=== PATIENT | female | born 2005 | race African-American/Black ===

== ENCOUNTER 2025-03-12 04:30 | Inpatient (IN) | payer OTHER ==
[2025-03-12] MEDS ORDERED: Magnesium 2 GM/50 ML BAG (IN WATER) ONE (04:39)
[2025-03-12 04:56] LABS: Actual Bicarbonate (HCO3v) 17.9 mEq/L (22-28); Base Excess -9.3 mEq/L (-2.0 to +3.0); Calcium, Ionized (venous) 1.14 mmol/L (1.16-1.32); Chloride (VBG) 104 mmol/L (98-106); Hematocrit-VBG 43 % (36.0-47.0); Hemoglobin (Hb) 14.5 g/dL (11.7-15.5); Potassium (VBG) 2.82 mmol/L (3.70-5.30); Sodium 143 mmol/L (133-146)
[2025-03-12 05:14] LABS: Hematocrit 41.5 % (36.0-47.0); Hemoglobin 13.3 g/dL (12.0-16.0); Mean Corpuscular Hemoglobin 30.0 pg (27.0-31.0); Mean Corpuscular Volume 93.7 fL (78.0-98.0); Platelet Count 255 10x3/uL (130-400); Red Blood Cell (RBC) Count 4.43 mill/uL (4.20-5.40); White Blood Cell (WBC) Count 5.18 10x3/uL (4.8-10.8)
[2025-03-12 05:15] LABS: INR-International Normal Ratio 1.0; PTT 28.4 sec (22.9-36.1); Prothrombin Time 13.6 sec (12.0-14.7)
[2025-03-12 05:34] LABS: ALT (SGPT) 117 U/L (Less than 34); AST (SGOT) 176 U/L (11-34); Albumin 4.2 g/dL (3.1-4.5); Alkaline Phosphatase 74 U/L (40-110); Anion Gap 18 mmol/L (10-20); BUN (Urea Nitrogen) 17 mg/dL (7.0-18.7); Bilirubin, Total 0.4 mg/dL (0.3-1.2); CK (CPK) 123 U/L (29-168); Calc. Creatinine Clearance 0 mL/min (70-130); Calcium 8.9 mg/dL (7.8-10.44); Carbon Dioxide 19 mmol/L (22-29); Chloride 107 mmol/L (98-107); Globulin 3.0 g/dL (2.4-3.5); Glucose 104 mg/dL (70-105); Potassium 2.8 mmol/L (3.5-5.1); Sodium 141 mmol/L (136-145)
[2025-03-12 05:37] LABS: Acetaminophen Less than 10 mcg/mL (Less than 10); Magnesium 2.0 mg/dL (1.6-2.6); Salicylate Less than 8.0 mg/dL (Less than 8.0)
[2025-03-12 05:39] LABS: Platelet Adequacy Comment Platelets Normal; RBC Morphology Within Normal Limits; Smudge Cells 10.9 %
[2025-03-12] MEDS ORDERED: NS 0.9% w/ 20 MEQ KCL 1,000 ML ONE (05:59)
[2025-03-12] MEDS ORDERED: Calcium Carbonate 500 MG ChewTAB PO PRN (06:10)
[2025-03-12] MEDS ORDERED: Ondansetron PF 4 MG/2 ML Vial IVP PRN (06:10)
[2025-03-12] MEDS ORDERED: Electrolyte Replacement Protocol 1 EACH FS PRN (06:15)
[2025-03-12 10:28] LABS: Cocaine Metabolite Screen Negative (Negative); THC/Cannabinoid Screen PRELIM POSITIVE (Negative); Tricyclic Screen Negative (Negative)
[2025-03-12 10:48] LABS: Albumin 3.6 g/dL (3.1-4.5); Anion Gap 10 mmol/L (10-20); BUN (Urea Nitrogen) 12 mg/dL (7.0-18.7); BUN/Creatinine Ratio 18.75; Calc. Creatinine Clearance 113 mL/min (70-130); Calcium 8.0 mg/dL (7.8-10.44); Carbon Dioxide 18 mmol/L (22-29); Chloride 110 mmol/L (98-107); Glucose 90 mg/dL (70-105); Potassium 4.4 mmol/L (3.5-5.1); Sodium 134 mmol/L (136-145)
[2025-03-12] MEDS: Acetaminophen 325 MG TAB PO PRN (11:27)
[2025-03-12] MEDS ORDERED: Iopamidol-370 76% 500 ML MDV (1 ML CHARGE) ONE (12:24)
[2025-03-12 15:39] LABS: Potassium 4.1 mmol/L (3.5-5.1)
[2025-03-12] MEDS: Mupirocin 1 GM TUBE NASAL DECOLONIZATION NASAL SCH (19:59)
[2025-03-13 05:02] LABS: ALT (SGPT) 83 U/L (Less than 34); AST (SGOT) 63 U/L (11-34); Albumin 3.3 g/dL (3.1-4.5); Alkaline Phosphatase 55 U/L (40-100); Anion Gap 8 mmol/L (10-20); BUN (Urea Nitrogen) 5 mg/dL (7.0-18.7); Bilirubin, Total 0.5 mg/dL (0.3-1.2); Calc. Creatinine Clearance 104 mL/min (70-130); Calcium 8.2 mg/dL (7.8-10.44); Carbon Dioxide 21 mmol/L (22-29); Chloride 112 mmol/L (98-107); Globulin 2.1 g/dL (2.4-3.5); Glucose 101 mg/dL (70-105); Magnesium 1.8 mg/dL (1.7-2.2); Potassium 4.0 mmol/L (3.5-5.1); Sodium 137 mmol/L (136-145)
[2025-03-13 05:46] LABS: #Basophils 0.03 10x3/uL (0.0-0.2); #Eosinophils 0.04 10x3/uL (0.0-0.7); #Monocytes 1.03 10x3/uL (0.11-0.59); #Neutrophils 5.14 10x3/uL (1.40-6.50); %Basophils 0.4 % (0.0-1.0); %Eosinophils 0.5 % (0.0-10.0); %Lymphocytes 19.2 % (28.0-48.0); %Monocytes 13.3 % (0.0-4.0); %Neutrophils 66.2 % (31.0-61.0); Hematocrit 34.3 % (36.0-47.0); Hemoglobin 11.2 g/dL (12.0-16.0); Mean Corpuscular Hemoglobin 30.7 pg (25.0-35.0); Mean Corpuscular Volume 94.0 fL (78.0-98.0); Platelet Count 195 10x3/uL (130-400); Red Blood Cell (RBC) Count 3.65 mill/uL (4.00-5.20); White Blood Cell (WBC) Count 7.76 10x3/uL (4.8-10.8)
[2025-03-13] MEDS: Magnesium 2 GM/50 ML(in water) 2 GM in Premix 1 BAG IVPB SCH (08:06)
[2025-03-13] MEDS ORDERED: Metoprolol Tartrate 5 MG (5 mL) VIAL IVP PRN (12:28)
[2025-03-13] MEDS: diphenhydrAMINE 50 MG/ML VIAL IVP SCH (20:06)
[2025-03-14 06:22] VITALS: BMI 21.6
[2025-03-15 08:14] LABS: Anion Gap 13 mmol/L (10-20); BUN (Urea Nitrogen) 6 mg/dL (7.0-18.7); Calc. Creatinine Clearance 113 mL/min (70-130); Calcium 8.6 mg/dL (7.8-10.44); Carbon Dioxide 22 mmol/L (22-29); Chloride 106 mmol/L (98-107); Glucose 80 mg/dL (70-105); Magnesium 1.6 mg/dL (1.7-2.2); Potassium 3.5 mmol/L (3.5-5.1); Sodium 137 mmol/L (136-145)
[2025-03-15] MEDS ORDERED: Famotidine/PF 20 mg/2ml Vial ONE (09:02)
[2025-03-15] MEDS ORDERED: fentaNYL PF 100 MCG/2 ML SYRINGE ONE (09:02)
[2025-03-15] MEDS ORDERED: PHENYLEPHRINE-NS 100 MCG/ML 10 ML SYRINGE ONE (09:18)
[2025-03-15] MEDS ORDERED: Glycopyrrolate 0.2 MG/ML 5 ML SYRINGE ONE (09:18)
[2025-03-15] MEDS ORDERED: Lidocaine 1% PF 5 ML VIAL ONE (09:18)
[2025-03-15] MEDS ORDERED: Ketorolac Tromethamine 30 MG (1 mL) VIAL ONE (09:18)
[2025-03-15] MEDS ORDERED: PROPOFOL 200 MG/20 ML VIAL ONE (09:18)
[2025-03-15] MEDS ORDERED: Heparin 10,000 UNITS/ 10 ML VIAL ONE (10:39)
[2025-03-15] MEDS ORDERED: Isoproterenol 0.2 MG/1 ML AMP ONE (10:40)
[2025-03-15] MEDS: Magnesium 2 GM/50 ML(in water) 2 GM in Premix 1 BAG IVPB SCH (12:18)
[2025-03-15 20:37] VITALS: BP 105/60; TEMP 98.4
== END 2025-03-15 22:35 | disposition short-term general hospital (02) | DRG 274 ==
LOC: ERS 04:30 → EDBD 06:20 → ERHOLD 06:20 → CCU 09:14 → 2NO 03-13 22:46
PROVIDERS: ADMIT Student in an Organized Health Care Education/Training Program; ATTEND Internal Medicine
PROC: 5A2204Z Restoration of Cardiac Rhythm, Single (ICD-10-PCS; principal; 2025-03-15)
PROC: 4A023FZ Measurement of Cardiac Rhythm, Percutaneous Approach (ICD-10-PCS; 2025-03-15)
PROC: 4A0234Z Measurement of Cardiac Electrical Activity, Percutaneous Approach (ICD-10-PCS; 2025-03-15)
DX: I47.20 Ventricular tachycardia, unspecified (principal); E87.20 Acidosis, unspecified; F17.210 Nicotine dependence, cigarettes, uncomplicated; I44.0 Atrioventricular block, first degree; E87.6 Hypokalemia; R94.5 Abnormal results of liver function studies; F12.20 Cannabis dependence, uncomplicated; I49.3 Ventricular premature depolarization; D64.9 Anemia, unspecified; F10.220 Alcohol dependence with intoxication, uncomplicated; Z86.16 Personal history of COVID-19
CPT/HCPCS: 36415; 71045; 71275; 78452; 80048; 80053; 80306; 80307; 82550; 82805; 83605; 83735; 83880; 84443; 84484; 85025; 85610; 85730; 93005; 93010; 93017; 93306; 93613; 93620; 93621; 93623; 93654; 96365; 96375; A9502; C1730; C1760; C1769; C1894; J0282; J1100; J1200; J1308; J1644; J1885; J2270; J2704; J2720; J3475; J3480; J7030; J7070; J7120; Q9967